=== PATIENT | female | born 1960 | race Two or more races ===

== ENCOUNTER 2018-01-13 07:56 | Day surgery (SDC) | payer OTHER ==
[2018-01-13] MEDS ORDERED: PROPOFOL 40 ML (09:22)
[2018-01-13] MEDS ORDERED: MIDAZOLAM 1 MG/ML 2 ML INJ (09:23)
== END 2018-01-13 11:58 | disposition home or self-care (01) ==
LOC: GIL 07:56
DX: Z12.11 Encounter for screening for malignant neoplasm of colon (principal); K64.8 Other hemorrhoids
CPT/HCPCS: 45378